=== PATIENT | female | born 1960 | race Caucasian/White ===

== ENCOUNTER 2022-02-28 11:00 | Outpatient (RCR) | payer BC, SELFPAY | END 2022-11-13 23:59 | disposition home or self-care (01) | PROVIDERS: PCP Family Medicine; Visit Provider Family Medicine | DX: M62.81 Muscle weakness (generalized) (principal); Z51.89 Encounter for other specified aftercare | CPT/HCPCS: 97110; 97140; 97165; 97535; L3808; X5282 ==

== ENCOUNTER 2023-01-26 07:04 | Outpatient (CLI) | payer BC, SELFPAY ==
--- NOTE | 2023-01-26 08:30 | W.ANESCHARGE ---
Anesthesia Charges Start Date/Time Anesthesia Start Date: 01/26/23 Anesthesia Start Time: 08:00 Stop Date/Time Anesthesia Stop Date: 01/26/23 Anesthesia Stop Time: 08:28
--- NOTE | 2023-01-26 09:08 | W.ANESCHARGE ---
Anesthesia Charges Start Date/Time Anesthesia Start Date: 01/26/23 Anesthesia Start Time: 08:00 Stop Date/Time Anesthesia Stop Date: 01/26/23 Anesthesia Stop Time: 08:28
== END 2023-01-26 07:05 | disposition home or self-care (01) ==
LOC: OP CLINIC 07:08
PROVIDERS: PCP Family Medicine; Visit Provider Internal Medicine Gastroenterology
DX: Z12.11 Encounter for screening for malignant neoplasm of colon (principal); Q43.8 Other specified congenital malformations of intestine
CPT/HCPCS: 00811; 00812; 45378; J2704

== ENCOUNTER 2023-05-21 09:05 | Emergency (ER) | payer BC, SELFPAY ==
[2023-05-21 09:10] VITALS: BP 118/80; PULSE 64; RESP 20; TEMP 36.7; O2SAT 98; BMI 29.8
--- NOTE | 2023-05-21 09:18 | CRLHL7_ITS ---
For Patients: As a result of the Century Cures Act, medical imaging exams and procedure reports are released immediately into your electronic medical record. You may view this report before your referring provider. If you have questions, please contact your health care provider. Indication: Fall, pain. Technique: Three views of the left wrist. Three views of the left hand. Comparison: None available. Findings: Left wrist: There is a minimally displaced intra-articular fracture involving the distal radius without loss of radial height or inclination. Normal ulnar variance. Chronic well corticated ossicle at the ulnar styloid. No additional fractures seen. Alignment is otherwise anatomic. Left hand: Distal radius fracture as described. No additional fracture is seen. Mild osteoarthritis of the thumb carpometacarpal joint. The bones are mildly demineralized. Mild soft tissue swelling of the wrist. Impression: 1. Minimally displaced intra-articular distal radius fracture. 2. No additional fracture identified of the left hand or wrist. Dictated by Juany Damian MD @ 05/21/2023 9:47:56 AM (Electronically Signed)
--- NOTE | 2023-05-21 09:22 | ED_ITS ---
HPI - Extremity Injury (Upper) General Time Seen by Provider: 09:22 Date Seen: 05/21/23 Chief Complaint: Extremity Pain/Injury, Upper Stated Complaint: Fall, L wrist injury Time Seen by Provider: 05/21/23 09:15 Source: patient Mode of arrival: ambulatory Limitations: no limitations History of Present Illness HPI narrative: Nelly is a very pleasant 62-year-old female previously healthy who comes to the emergency room with complaints of left wrist and hand pain. Nelly was outside this morning having taking her garbage can out and slipped on ice in her driveway falling onto her backside and injuring her left wrist although she is unsure of how she fell. Since that time she notes pain in the area of the radial wrist. It is painful to move it. She has not taken any pain medication at this time. She does have ice on it when I see her. Nelly denies hitting her head or neck pain. Her initially told nursing staff that she had loss of consciousness but this does not appear to be the case but rather she was somewhat stunned. No prodromal symptoms prior to the fall. Related Data Home Medications Medication Instructions Recorded Confirmed No Known Home Medications 05/21/23 05/21/23 Allergies Allergy/AdvReac Type Severity Reaction Status Date / Time neomycin Allergy Mild rash Verified 01/26/23 08:15 Review of Systems Status of ROS: Reports: 6 or more systems reviewed and unremarkable except as noted in History and below Exam Narrative: Exam Narrative: Alert and oriented. Very stoic person. Mentating normally with a GCS of 15. Head is atraumatic. Examination of the left wrist shows some mild swelling dorsal lateral surface with point tenderness. She does have sensation distally intact. She is able to move her fingers. Superficial bruise noted on the left forearm dorsum. Otherwise no tenderness with examination of the forearm or elbow. Const: Vital Signs, click to edit/add: Vital Signs - 24 hr 05/21/23 09:10 05/21/23 10:40 Temperature 98.1 F Pulse Rate [Pulse Oximeter] 64 58 L Respiratory Rate 20 Blood Pressure [Ri ght Upper Arm] 118/80 130/81 Pulse Oximetry 98 99 Oxygen Delivery Me thod Room Air Room Air Documenting provider has reviewed patient's vital signs: yes Course Course ED Course: Differential diagnosis includes wrist fracture, radial fracture, sprain. Will obtain x-rays. Patient is offered pain medication but declines at this time. Vital Signs Vital signs: Initial Vital Signs Temperature 98.1 F 05/21/23 09:10 Temperature Source Temporal Artery Scan 05/21/23 09:10 Pulse Rate 64 05/21/23 09:10 Respiratory Rate 20 05/21/23 09:10 Blood Pressure 118/80 05/21/23 09:10 Blood Pressure Mean 92 05/21/23 09:10 Blood Pressure Position Sitting 05/21/23 09:10 Pulse Oximetry 98 05/21/23 09:10 Oxygen Delivery Method Room Air 05/21/23 09:10 Vital Signs Temperature 98.1 F 05/21/23 09:10 Pulse Rate 64 05/21/23 09:10 Respiratory Rate 20 05/21/23 09:10 Blood Pressure 118/80 05/21/23 09:10 Pulse Oximetry 98 05/21/23 09:10 Oxygen Delivery Method Room Air 05/21/23 09:10 Temperature 98.1 F 05/21/23 09:10 Pulse Rate 58 L 05/21/23 10:40 Respiratory Rate 20 05/21/23 09:10 Blood Pressure 130/81 05/21/23 10:40 Pulse Oximetry 99 05/21/23 10:40 Oxygen Delivery Method Room Air 05/21/23 10:40 MDM - Extremity Injury (Upper) MDM Narrative Medical decision making narrative: 1. Left radial fracture-this fracture does go through the joint line. Minimally displaced. A volar dorsal splint was placed. Patient noted that this splint was painful and that her fingers were tingling. Normal we would expect improvement of discomfort. Thus I removed the Ricki wrap and reapplied and patient felt much better. During her stay here we did offer pain medication multiple times but she declined. However upon further discussion she would like something for sleep tonight. I have issued [place] 5/325 1-2 tablets q.6 hours p.r.n. pain 8. Via [employer]. 2. [id number] with orthopedics in the next 5-10 days. Return for worsening symptoms. Medical Records Attestation: I reviewed the patient's medical records. Imaging Data Hand and wrist x-ray: Attestation: I have reviewed the pertinent imaging results. My impression: Obvious fracture of the distal radius I do not note significant displacement. Radiologist's impression: ft wrist: There is a minimally displaced intra-articular fracture involving the distal radius without loss of radial height or inclination. Normal ulnar variance. Chronic well corticated ossicle at the ulnar styloid. No additional fractures seen. Alignment is otherwise anatomic. Left hand: Distal radius fracture as described. No additional fracture is seen. Mild osteoarthritis of the thumb carpometacarpal joint. The bones are mildly demineralized. Mild soft tissue swelling of the wrist. Impression: 1. Minimally displaced intra-articular distal radius fracture. 2. No additional fracture identified of the left hand or wrist. Discharge Plan Discharge Clinical Impression: Fracture of wrist Patient Disposition: Home, Self-Care Condition: Improved Additional Instructions: Ibuprofen or Tylenol may be used for discomfort. Follow-up with orthopedics in the next 5-10 days. The phone number is [phone]. This splint cannot get wet. You will need to put a plastic bag over it in order to base. Sling as needed If you started experiencing increasing pain not relieved by ibuprofen or Tylenol, you have the of onset of other symptoms please return to the emergency room for evaluation. [place] may be used at night if needed. It is a combo med of tylenol and hydrocodone. colace is the stool softener that I recommend to prevent constipa tion Prescriptions: No Action No Known Home Medications Follow Up/Referrals: Angélica Meraz DO [Primary Care Provider] - Stand Alone Forms: [employer] Info Instructions
--- NOTE | 2023-05-21 10:21 | ED.NURSE ---
Dr. Albrecht placed a splint on the left wrist.
[2023-05-21 10:40] VITALS: BP 130/81; PULSE 58; O2SAT 99
== END 2023-05-21 11:23 | disposition home or self-care (01) ==
PROVIDERS: Emergency Provider Family Medicine; PCP Family Medicine
DX: S52.572A Other intraarticular fracture of lower end of left radius, initial encounter for closed fracture (principal); W00.9XXA Unspecified fall due to ice and snow, initial encounter
CPT/HCPCS: 29125; 73110; 73130; 99283

== ENCOUNTER 2023-07-08 12:46 | Outpatient (RCR) | payer OTHER, SELFPAY ==
--- NOTE | 2023-07-08 18:04 | OT.OPOE ---
OT Outpatient Ortho Eval OT Outpatient Ortho Eval* Start: 07/08/23 14:25 Freq: Status: Active Protocol: Document 07/08/23 14:25 LCN (Rec: 07/08/23 14:32 LCN [id number]) E-signed By Meg Engle, OTR/L, CLT OT OP Ortho Eval Details Complexity Complexity Low Insurance Information Insurance Information Medicaid Outpatient History/Precautions Current Condition/Medical Diagnosis Referring Provider Yokasta Ayala PA-C Treatment Diagnosis B wrist stiffness, L distal radius styloid fracture Date of Onset 05/21/23 Other Conditions GERD, has had a CVA. History of chest wall pain, rectocele, vag prolapse. 4 natural childbirths. H/O vein stripping procedure. 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 Fitness Walking Ortho Subjective Subjective Subjective Nelly Martinez is a 62 y/o female who fell backward onto her icy drvie way , catching herself, w immediate pn with did fx L distal radius, casted x 6 weeks, good position noted at 2 weeks out 06/03/23. Prefers to do therapy than return to orthopedics ( to preserve her health care dollars). Pt removed her own cast this a.m. with careful skin protective techniques with ruler under, used her dremel with near by. Lots of skin flaking of entire L hand wrist, swelling looks okay at start of session. 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 Pain Assessment Pain Present Pain Present Pain Reported Location L wrist stiffness, distal radisu and CMC pain Description Dull, Achy,Throbbing,With Movement Intensity 4 R wrist stiffness Description Dull, Achy Intensity 4 Range of Motion and Strength Wrist Range of Motion and Strength Wrist Range of Motion and Strength Has some pulled in L ant delt to TFCC area when reaching behind back/donning bra/SH IR. H ABD to ADD no pain. Has full SOURAV to TEF, no pain. Over pressure of supination at 90 of 90 pulls into L TFCC and CMC base. Pronation over pressure radiates to TFCC area. WR EX R 25, L 30 of 70. WR FL to [address] is 25/25 R and 7/25 L. UD is 40/45 B. Has full table top, hook and flat/ rolled positions B. L CMC opposes to RF tip, 7/10 [place] scale, stiff at base of CMC, MP area. Denies numbness, tingling. Hand Pinch/Spa Assistant Manager Strength Hand Right Spa Assistant Manager Strength Position 1 (lbs) 42 Lateral Pinch Strength (lbs) 10 Three Point Pinch (lbs) 12 Left Spa Assistant Manager Strength Position 1 (lbs) 1 OT Problems Problems Problems Decreased Strength,Decreased Range of Motion,Pain,Sensory Sensitivity,Lifting,Gripping, Pinching Problems Comments Painful to write with R hand, base of CMC pain. Does note she has had increased B Wrist stiffness since her [facility] procedures in 2016/2017 prior to this incident. Other Problems Writing,Opening Containers, Dressing,Fasteners Patient Potential Excellent Assessment Assessment Assessment Nelly is having sx of difficulty with pain, ROM, stiffness and strength loss of B wrist/elbow limiting daily tasks. She would benefit from skilled OT to address these areas. Occupational Therapy Treatment Plan - OP Potential Rehabilitation Potential Excellent Set Goals Goals Set with Patient Yes Goals Goals In 8 weeks, Nelly will demonstrate:? 1) Decreased pn to <2/10 80% of the time with sustained gripping, use of feeding/ watering/farm tools, sewing and writing. 2) I HEP for stretching, gradual strengthening and self mgmt strategies. 3) improved L online community manager strength to 35# and pinch to 13# with L thumb pain < 1/10. Treatment Plan Treatment Plan Evaluation,Edema Control,Joint Mobilization,Manual Therapy, Splinting,Therapeutic Exercise ,Self Care/Home Management, Education Expected Frequency 1x Week Expected Duration 6-8 Weeks Home Program Home Program Home Program Initiated Home Program Specifics WR EX/FL/RD/UD A/AAROM, contrast baths Recertification Information Recertification Information Initial Certification Date 07/08/23 Recertification Due Date 10/06/23 Click To Default 'Per treatment plan' Per treatment plan Continued Plan of Care and Interventions Per treatment plan Provider Signature Shows Agreement With POC & Medical Necessity Physician Comment/Change Comment or Changes Physician NPI Number #
== END 2023-11-05 23:59 | disposition home or self-care (01) ==
PROVIDERS: PCP Family Medicine; Visit Provider Physician Assistant
DX: S52.512A Displaced fracture of left radial styloid process, initial encounter for closed fracture (principal); M25.632 Stiffness of left wrist, not elsewhere classified; M25.631 Stiffness of right wrist, not elsewhere classified; Z51.89 Encounter for other specified aftercare
CPT/HCPCS: 97165; 97535